=== PATIENT | female | born 1940 ===

== ENCOUNTER → 2018-02-04 12:36 | Outpatient (REF) | payer OTHER, MEDICARE, SELFPAY ==
[2018-02-04 12:55] LABS: Bilirubin Urine UA NEGATIVE (NEGATIVE); Color Urine UA YELLOW; Glucose Urine UA NEGATIVE (Normal); Ketones Urine UA NEGATIVE (NEGATIVE); Leukocyte Esterase Urine UA 3+ (NEGATIVE); Nitrite Urine UA POSITIVE (Negative); Occult Blood Urine UA 3+ (Negative); Protein Urine UA 1+ (Negative); Urobilinogen Urine UA 0.2 E.U./dL (0.2); pH Urine UA 5.5 (4.5-8.0)
[2018-02-04 12:57] LABS: Appearance Urine UA Cloudy; RBC Urine 5-10/HPF (0-5/HPF); Squamous Epithelial Cell Urine None Seen; WBC Urine 30-100/HPF (0-5/HPF)
[2018-02-04 12:58] LABS: Bacteria Urine Many (>30); Culture Indicated Urine Specimen Cultured
== END ==
LOC: LAB 12:36
PROVIDERS: Family Provider Internal Medicine; PCP Internal Medicine; Visit Provider Family Medicine
DX: N39.0 Urinary tract infection, site not specified (principal)
CPT/HCPCS: 81001; 87077; 87086; 87186

== ENCOUNTER → 2018-04-30 14:05 | Outpatient (REF) | payer OTHER, MEDICARE, SELFPAY | LOC: LAB 14:05 | PROVIDERS: Family Provider Internal Medicine; PCP Internal Medicine; Visit Provider Family Medicine | DX: N39.0 Urinary tract infection, site not specified (principal) | CPT/HCPCS: 87077; 87086; 87186 ==

== ENCOUNTER → 2018-06-11 16:11 | Outpatient (REF) | payer OTHER, MEDICARE, SELFPAY | LOC: LAB 16:11 | PROVIDERS: Family Provider Internal Medicine; PCP Internal Medicine; Visit Provider Family Medicine | DX: N39.0 Urinary tract infection, site not specified (principal) | CPT/HCPCS: 87077; 87086; 87186 ==